=== PATIENT | male | born 1950 | race Caucasian/White ===

== ENCOUNTER 2017-08-27 09:29 | Observation (INO) | payer MEDICARE, OTHER ==
[2017-08-27] MEDS ORDERED: Nitroglycerin 0.4 MG Tab.SL SL ONE (09:38)
[2017-08-27] MEDS ORDERED: Sodium Chloride 0.9% 10 ML Syringe FLUSH PRN (09:38)
[2017-08-27 10:28] LABS: CHLORIDE,CL 102 mmol/L (98-107); SODIUM,NA 139 mmol/L (136-145)
[2017-08-27] MEDS ORDERED: Iopamidol 612 MG/ML 100 ML Bottle IVPUSH ONE (12:06)
[2017-08-27] MEDS ORDERED: Enoxaparin 100 MG/1 ML Syringe SUBCUT SCH (15:00)
--- NOTE | 2017-08-27 15:14 | EDM.PDOC ---
ED HPI GENERAL MEDICAL PROBLEM - General Chief Complaint: Chest Pain Stated Complaint: CHEST PAINS Time Seen by Provider: 08/27/17 09:29 Source of Information: Reports: Patient History Limitations: Reports: No Limitations - History of Present Illness INITIAL COMMENTS - FREE TEXT/NARRATIVE: Pt. presented to ER with acute onset of crushing substernal chest pain that developed while installing manolo at his residence. Pt. states that he checked his pulse and stated that it was 160. Pt. stated that he thought he " was having a heart attack". He was immediately diaphoretic at onset. Pt. states that he has had similar episodes in the past. He states that he has had a history of previous tachydysrhythmia in the past and has seen cardiology for this. She states that the discomfort doesn't radiate into his arms, jaw, neck, or back. Pt. states that he has been experiencing diarrhea intermittently for the past several days as well. He has a history of previous TIA and states that he thinks he has had an angiogram as well in the past. 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 Mid-Sternal Chest Pain Score (Numeric/FACES): 2 - Related Data Allergies Allergy/AdvReac Type Severity Reaction Status Date / Time hydrocodone Allergy Cannot Verified 08/27/17 10:07 Remember lisinopril AdvReac Tachycardia Verified 08/27/17 10:07 metformin AdvReac Nausea and Verified 08/27/17 10:07 Vomiting rofecoxib [From Vioxx] AdvReac Tachycardia Verified 08/27/17 10:07 valdecoxib [From Bextra] AdvReac Tachycardia Verified 08/27/17 10:07 Home Meds: Home Meds Tetrahydrozoline HCl [Visine] 1 drop EYEBOTH ASDIRECTED PRN 06/29/16 [History] Aspirin 325 mg PO DAILY 08/27/17 [History] Valsartan [Valsartan] 40 mg PO DAILY 08/27/17 [History] atorvaSTATin [Lipitor] 40 mg PO DAILY 08/27/17 [History] Past Medical History HEENT History: Reports: Hard of Hearing Cardiovascular History: Reports: High Cholesterol, Hypertension Neurological History: Reports: CVA, TIA Endocrine/Metabolic History: Reports: Obesity/BMI 30+ - Infectious Disease History Infectious Disease History: Reports: Chicken Pox - Past Surgical History GI Surgical History: Reports: Colonoscopy Musculoskeletal Surgical History: Reports: Arthroscopic Knee, Other (See Below) Social & Family History - Family History Family Medical History: Noncontributory - Tobacco Use Smoking Status *Q: Former Smoker Years of Tobacco use: 25 Used Tobacco, but Quit: No Month Tobacco Last Used: 1 Second Hand Smoke Exposure: Yes - Caffeine Use Caffeine Use: Reports: Coffee, Soda - Alcohol Use Days Per Week of Alcohol Use: 7 Number of Drinks Per Day: 1 Total Drinks Per Week: 7 - Recreational Drug Use Recreational Drug Use: No Drug Use in Last 12 Months: No ED ROS GENERAL - Review of Systems Review Of Systems: See Below Constitutional: Reports: No Symptoms HEENT: Reports: No Symptoms Respiratory: Reports: No Symptoms Cardiovascular: Reports: Chest Pain, Lightheadedness, Other (tachycardia) Endocrine: Reports: No Symptoms, Other (type II DM, not currently taking medication (unable to tolerate oral meds)) GI/Abdominal: Reports: No Symptoms : Reports: No Symptoms Musculoskeletal: Reports: No Symptoms Skin: Reports: No Symptoms Neurological: Reports: Other (TIA) Psychiatric: Reports: No Symptoms Hematologic/Lymphatic: Reports: No Symptoms Immunologic: Reports: No Symptoms ED EXAM, GENERAL - Physical Exam Exam: See Below Exam Limited By: No Limitations General Appearance: Alert, WD/WN, No Apparent Distress Eye Exam: Bilateral Eye: Normal Fundi, Normal Inspection, PERRL Ears: Normal External Exam, Normal Canal, Hearing Grossly Normal, Normal TMs Ear Exam: Bilateral Ear: Auricle Normal, Canal Normal, TM normal Nose: Normal Inspection, Normal Mucosa, No Blood Throat/Mouth: Normal Inspection, Normal Lips, Normal Teeth, Normal Gums, Normal Oropharynx, Normal Voice, No Airway Compromise Head: Atraumatic, Normocephalic Neck: Normal Inspection, Supple, Non-Tender, Full Range of Motion Respiratory/Chest: No Respiratory Distress, Lungs Clear, Normal Breath Sounds, No Accessory Muscle Use, Chest Non-Tender Cardiovascular: Normal Peripheral Pulses, Regular Rate, Rhythm, No Edema, No Gallop, No JVD, No Murmur, No Rub Peripheral Pulses: 3+: Radial (L), Radial (R) GI/Abdominal: Normal Bowel Sounds, Soft, Non-Tender, No Organomegaly, No Distention, No Abnormal Bruit, No Mass (Male) Exam: Deferred Rectal (Males) Exam: Deferred Back Exam: Normal Inspection, Full Range of Motion, NT Extremities: Normal Inspection, Normal Range of Motion, Non-Tender, Normal Capillary Refill, No Pedal Edema Neurological: Alert, Oriented, CN II-XII Intact, Normal Cognition, Normal Gait, Normal Reflexes, No Motor/Sensory Deficits Psychiatric: Normal Affect, Normal Mood Skin Exam: Warm, Dry, Intact, Normal Color, No Rash EKG INTERPRETATION Rhythm: NSR [place]: Normal P-Wave: Present QRS: Normal ST-T: Depressed QT: Normal Course - Vital Signs Last Recorded V/S: Last Vital Signs Temp 36.8 C 08/27/17 13:38 Pulse 95 08/27/17 11:31 Resp 18 08/27/17 13:38 BP 119/71 08/27/17 13:38 Pulse Ox 95 08/27/17 13:38 - Orders/Labs/Meds Orders: Active Orders 24 hr Category Date Time Status Chest 1V Frontal [CR] Stat Exams 08/27/17 09:37 Taken Sodium Chloride 0.9% [Saline Flush] Med 08/27/17 09:38 Active 10 ml FLUSH ASDIRECTED PRN Peripheral IV Insertion Adult [OM.PC] Routine Oth 08/27/17 09:38 Ordered Medication Orders Atorvastatin Calcium (Lipitor) 40 mg PO DAILY [facility] Enoxaparin Sodium (Lovenox) 100 mg SUBCUT Q12HR [facility] Insulin Detemir (Levemir) 20 unit SUBCUT DAILY [facility] Non-Formulary Medication (Aspirin [Aspirin]) 325 mg PO DAILY [facility] Non-Formulary Medication (Valsartan [Valsartan]) 40 mg PO DAILY [facility] Sodium Chloride (Saline Flush) 10 ml FLUSH ASDIRECTED PRN PRN Reason: Keep Vein Open Labs: Laboratory Tests 08/27/17 08/27/17 08/27/17 Range/Units 09:51 09:51 09:51 WBC 7.5 (4.0-10.0) x10^3/uL RBC 4.95 (4.5-6.0) x10^6/uL Hgb 15.0 (14.0-18.0) g/dL Hct 43.7 (40.0-52.0) % MCV 88.3 (78.0-93.0) fL MCH 30.3 (26.0-32.0) pg MCHC 34.3 (32.0-36.0) g/dL RDW Coeff of Rafa 13.0 (10.0-15.0) % Plt Count 241 (130-400) x10^3/uL Neut % (Auto) 60.3 (50.0-80.0) % Lymph % (Auto) 27.3 (25.0-50.0) % [place] % (Auto) 10.0 (2.0-11.0) % Eos % (Auto) 1.9 (0.0-4.0) % Baso % (Auto) 0.5 (0.2-1.2) % PT 11.0 (9.8-11.8) SEC INR 1.0 L (2.0-3.5) Sodium 139 (136-145) mmol/L Potassium 3.5 (3.5-5.1) mmol/L Chloride 102 (98-107) mmol/L Carbon Dioxide 21 (21-32) mmol/L BUN 22 H (7-18) mg/dL Creatinine 1.0 (0.70-1.30) mg/dL Est Cr Clr Drug Dosing TNP Estimated GFR (MDRD) > 60 Glucose 261 H (74-106) mg/dL Calcium 9.2 (8.5-10.1) mg/dL Corrected Calcium 9.60 (8.5-10.1) mg/dL Total Bilirubin 0.7 (0.2-1.0) mg/dL AST 20 (15-37) U/L ALT 34 (16-63) U/L Alkaline Phosphatase 126 H (46-116) U/L Creatine Kinase 152 (39-308) U/L Creatine Kinase Index 1.3 (0.0-4.0) % CK-MB (CK-2) 2.0 (0.0-3.6) ng/mL POC Troponin I (0.00-0.08) ng/mL C-Reactive Protein 0.9 (<=0.9) mg/dL NT-Pro-B Natriuret Pep 78 (<=125) pg/mL Total Protein 7.3 (6.4-8.2) g/dL Albumin 3.5 (3.4-5.0) g/dL Globulin 3.8 Albumin/Globulin Ratio 0.92 08/27/17 Range/Units 09:58 WBC (4.0-10.0) x10^3/uL RBC (4.5-6.0) x10^6/uL Hgb (14.0-18.0) g/dL Hct (40.0-52.0) % MCV (78.0-93.0) fL MCH (26.0-32.0) pg MCHC (32.0-36.0) g/dL RDW Coeff of Rafa (10.0-15.0) % Plt Count (130-400) x10^3/uL Neut % (Auto) (50.0-80.0) % Lymph % (Auto) (25.0-50.0) % [place] % (Auto) (2.0-11.0) % Eos % (Auto) (0.0-4.0) % Baso % (Auto) (0.2-1.2) % PT (9.8-11.8) SEC INR (2.0-3.5) Sodium (136-145) mmol/L Potassium (3.5-5.1) mmol/L Chloride (98-107) mmol/L Carbon Dioxide (21-32) mmol/L BUN (7-18) mg/dL Creatinine (0.70-1.30) mg/dL Est Cr Clr Drug Dosing Estimated GFR (MDRD) Glucose (74-106) mg/dL Calcium (8.5-10.1) mg/dL Corrected Calcium (8.5-10.1) mg/dL Total Bilirubin (0.2-1.0) mg/dL AST (15-37) U/L ALT (16-63) U/L Alkaline Phosphatase (46-116) U/L Creatine Kinase (39-308) U/L Creatine Kinase Index (0.0-4.0) % CK-MB (CK-2) (0.0-3.6) ng/mL POC Troponin I 0.00 (0.00-0.08) ng/mL C-Reactive Protein (<=0.9) mg/dL NT-Pro-B Natriuret Pep (<=125) pg/mL Total Protein (6.4-8.2) g/dL Albumin (3.4-5.0) g/dL Globulin Albumin/Globulin Ratio Meds: Medications Generic Name Dose Route Start Last Admin Trade Name Nedq PRN Reason Stop Dose Admin Atorvastatin Calcium 40 mg 08/27/17 08:00 Lipitor PO DAILY [facility] Enoxaparin Sodium 100 mg 08/27/17 20:00 Lovenox SUBCUT Q12HR [facility] Insulin Detemir 20 unit 08/27/17 14:45 Levemir SUBCUT DAILY [facility] Non-Formulary Medication 325 mg 08/28/17 08:00 Aspirin [Aspirin] PO DAILY [facility] Non-Formulary Medication 40 mg 08/28/17 08:00 Valsartan [Valsartan] PO DAILY [facility] Sodium Chloride 10 ml 08/27/17 09:38 Saline Flush FLUSH ASDIRECTED PRN Keep Vein Open Discontinued Medications Generic Name Dose Route Start Last Admin Trade Name Nedq PRN Reason Stop Dose Admin Iopamidol 100 ml 08/27/17 12:06 08/27/17 12:19 Isovue-300 (61%) IVPUSH 08/27/17 12:07 100 ml ONETIME ONE Administration Nitroglycerin 0.4 mg 08/27/17 09:38 08/27/17 09:55 Nitrostat SL 08/27/17 09:39 0.4 mg ONETIME ONE Administration - Radiology Interpretation Free Text/Narrative:: CXR neg. CT chest with contrast did not reveal AAA. CT Results Date: 08/27/17 CT Results Time: 15:19 Departure - Departure Time of Disposition: 13:00 Disposition: Refer to Observation Clinical Impression: Chest pain of uncertain etiology - My Orders Last 24 Hours: My Active Orders 08/27/17 09:37 Chest 1V Frontal [CR] Stat 08/27/17 09:38 Sodium Chloride 0.9% [Saline Flush] 10 ml FLUSH ASDIRECTED PRN Peripheral IV Insertion Adult [OM.PC] Routine - Assessment/Plan Last 24 Hours: My Active Orders 08/27/17 09:37 Chest 1V Frontal [CR] Stat 08/27/17 09:38 Sodium Chloride 0.9% [Saline Flush] 10 ml FLUSH ASDIRECTED PRN Peripheral IV Insertion Adult [OM.PC] Routine Assessment:: Chest pain, R/O VT Plan: Admit-Obs Dr. Keith consulted. Advised serial troponins. Code level 1. Start lovenox 80mg BID Start levemir 20u daily will transfer if troponin is trending upward
[2017-08-27] MEDS: atorvaSTATin 40 MG Tab PO SCH (15:23)
[2017-08-27] MEDS: Insulin Detemir 100 Units/ML 3 ML Pen SUBCUT SCH (15:53)
[2017-08-27] MEDS: Enoxaparin 100 MG/1 ML Syringe SUBCUT SCH (21:31)
[2017-08-28 06:49] VITALS: BP 112/60
[2017-08-28] MEDS: Enoxaparin 100 MG/1 ML Syringe SUBCUT SCH (07:27)
[2017-08-28] MEDS: atorvaSTATin 40 MG Tab PO SCH (07:28)
[2017-08-28] MEDS: Insulin Detemir 100 Units/ML 3 ML Pen SUBCUT SCH (07:28)
[2017-08-28] MEDS ORDERED: Losartan 25 MG Tab PO SCH (08:00)
[2017-08-28] MEDS ORDERED: Aspirin 325 MG Tab.EC PO SCH (08:00)
[2017-08-28 09:31] LABS: CHLORIDE,CL 103 mmol/L (98-107); SODIUM,NA 138 mmol/L (136-145)
--- NOTE | 2017-09-13 01:54 | PCM.DCSUM1 ---
Discharge Summary - Hospital Course Free Text/Narrative:: Pt. was admitted with chest and arm pain from ER. Serial EKG and cardiac enzymes were all within normal limits. Pt. presented with crushing chest pain with a heart rate in the 130-140 range (sinus tach) which quickly resolved to a sinus rhythm at 80-90. Pt. was started in levemir for glucose control; pt. states that his A1C in the 8-9 range consistently and he is unable to tolerate oral medication, so he hasn't been treating his diabetes. Dr. Keith was consulted who advised that the pt. be admitted and set up for 2 day cardiolyte as an outpatient, as his cardiac enzymes and EKG were WNL. - Discharge Data Discharge Date: 08/28/17 Discharge Disposition: Home, Self-Care 01 Condition: Good - Discharge Diagnosis/Problem(s) (1) Chest pain SNOMED Code(s): 52212962 ICD Code: R07.9 - CHEST PAIN, UNSPECIFIED Status: Acute Qualifiers: Ischemic chest pain type: stable angina pectoris - Patient Instructions Diet: Heart Healthy Diet Driving: Do Not Drive - Discharge Plan Prescriptions/Med Rec: Insulin Detemir [Levemir] 20 unit SUBCUT DAILY #5 pen Home Medications: Home Meds Tetrahydrozoline HCl [Visine] 1 drop EYEBOTH ASDIRECTED PRN 06/29/16 [History] Aspirin 325 mg PO DAILY 08/27/17 [History] Valsartan 40 mg PO DAILY 08/27/17 [History] atorvaSTATin [Lipitor] 40 mg PO DAILY 08/27/17 [History] Insulin Detemir [Levemir] 20 unit SUBCUT DAILY #5 pen 08/28/17 [Rx] Forms: ED Department Discharge Referrals: Sascha Willingham MD [Primary Care Provider] - - General Info Functional Status: Reports: Pain Controlled - Review of Systems General: Reports: No Symptoms HEENT: Reports: No Symptoms Pulmonary: Reports: No Symptoms Cardiovascular: Reports: Chest Pain (resolved) Gastrointestinal: Reports: No Symptoms Genitourinary: Reports: No Symptoms Musculoskeletal: Reports: No Symptoms Skin: Reports: No Symptoms Neurological: Reports: No Symptoms Psychiatric: Reports: No Symptoms - Patient Data Vitals - Most Recent: Last Vital Signs Temp 36.7 C 08/28/17 06:00 Pulse 69 08/28/17 06:00 Resp 18 08/28/17 06:00 BP 112/60 08/28/17 07:28 Pulse Ox 96 08/28/17 06:00 Weight - Most Recent: 104.326 kg Med Orders - Current: Current Medications Discontinued Medications Aspirin (Ecotrin) 325 mg PO DAILY [facility] Last Admin: 08/28/17 07:28 Dose: 325 mg Atorvastatin Calcium (Lipitor) 40 mg PO DAILY [facility] Last Admin: 08/28/17 07:28 Dose: 40 mg Enoxaparin Sodium (Lovenox) 100 mg SUBCUT Q12H [facility] Last Admin: 08/27/17 15:57 Dose: 100 mg Enoxaparin Sodium (Lovenox) 100 mg SUBCUT Q12HR@0800,2000 [facility] Last Admin: 08/28/17 07:27 Dose: 100 mg Insulin Detemir (Levemir) 20 unit SUBCUT DAILY [facility] Last Admin: 08/28/17 07:28 Dose: 20 units Iopamidol (Isovue-300 (61%)) 100 ml IVPUSH ONETIME ONE Stop: 08/27/17 12:07 Last Admin: 08/27/17 12:19 Dose: 100 ml Losartan Potassium (Cozaar) 25 mg PO DAILY [facility] Last Admin: 08/28/17 07:28 Dose: 25 mg Nitroglycerin (Nitrostat) 0.4 mg SL ONETIME ONE Stop: 08/27/17 09:39 Last Admin: 08/27/17 09:55 Dose: 0.4 mg Sodium Chloride (Saline Flush) 10 ml FLUSH ASDIRECTED PRN PRN Reason: Keep Vein Open Last Admin: 08/27/17 21:33 Dose: 10 ml - Exam General: Reports: Alert, Oriented HEENT: Reports: Pupils Equal, Pupils Reactive, EOMI, Mucous Membr. Moist/[place] Neck: Reports: Supple Lungs: Reports: Clear to Auscultation, Normal Respiratory Effort Cardiovascular: Reports: Regular Rate, Regular Rhythm GI/Abdominal Exam: Normal Bowel Sounds, Soft, Non-Tender, No Organomegaly, No Distention, No Abnormal Bruit, No Mass, Pelvis Stable (Male) Exam: Deferred Rectal (Males) Exam: Deferred Back Exam: Reports: Normal Inspection, Full Range of Motion Extremities: Normal Inspection, Normal Range of Motion, Non-Tender, No Pedal Edema, Normal Capillary Refill Skin: Reports: Warm, Dry, Intact Wound/Incisions: Reports: Healing Well Neurological: Reports: No New Focal Deficit Psy/Mental Status: Reports: Alert, Normal Affect, Normal Mood EKG INTERPRETATION Rhythm: NSR *Q Meaningful Use (DIS) - VTE *Q VTE Criteria *Q: - Stroke *Q Stroke Criteria *Q: - AMI *Q AMI Criteria *Q:
== END 2017-08-28 10:30 | disposition home or self-care (01) ==
LOC: VM.ED 09:29 → VM.MS 11:53
PROVIDERS: ADMIT Physician Assistant; ATTEND Physician Assistant
DX: R07.2 Precordial pain (principal); E78.00 Pure hypercholesterolemia, unspecified; I10 Essential (primary) hypertension; E11.9 Type 2 diabetes mellitus without complications; E66.9 Obesity, unspecified; Z68.34 Body mass index [BMI] 34.0-34.9, adult; Z86.73 Personal history of transient ischemic attack (TIA), and cerebral infarction without residual deficits; Z87.891 Personal history of nicotine dependence; Z88.5 Allergy status to narcotic agent; Z88.8 Allergy status to other drugs, medicaments and biological substances; Z88.6 Allergy status to analgesic agent; Z79.899 Other long term (current) drug therapy; Z79.82 Long term (current) use of aspirin; Z98.890 Other specified postprocedural states
CPT/HCPCS: 36415; 71045; 71275; 80053; 82550; 82553; 82962; 83880; 84484; 85025; 85027; 85610; 86140; 93005; 96372; 99217; 99220; 99285; A9270-GY; G0378; J1650; J1815-GY; J7050; Q9967

== ENCOUNTER 2018-09-02 08:55 | Emergency (ER) | payer MEDICARE, OTHER ==
[2018-09-02] MEDS ORDERED: Sodium Chloride 0.9% 10 ML Syringe FLUSH PRN (09:02)
[2018-09-02] MEDS ORDERED: Sodium Chloride 0.9% 1,000 ML IV ONE (09:05)
[2018-09-02] MEDS ORDERED: Aspirin 81 MG Tab.Chew PO ONE (09:14)
--- NOTE | 2018-09-02 09:44 | CR ---
[id number] RAD/RAD Chest PA or AP 1V EXAM: FRONTAL CHEST INDICATION: DYSPNEA. COMPARISON: August 27, 2017. DISCUSSION: The heart is mildly enlarged with development of mild central vascular congestion. No focal infiltrates. IMPRESSION: 1. Mild central vascular congestion. Taurus Nava MD 09/02/18 0943 Thank you for allowing us to participate in the care of your patient.
--- NOTE | 2018-09-02 09:48 | EDM.PDOC ---
ED HPI GENERAL MEDICAL PROBLEM - General Chief Complaint: Chest Pain Time Seen by Provider: 09/02/18 09:00 Source of Information: Reports: Patient History Limitations: Reports: No Limitations - History of Present Illness INITIAL COMMENTS - FREE TEXT/NARRATIVE: Pt. presents to ER with complaints of palpitations that started last evening, lightheadedness, and chest pain. He initially went to the clinic and was brought to ER after becoming near-syncopal and lightheaded in clinic. He was diaphoretic. He has had palpitations in the past but states that he has never been formally diagnosed with a-fib or other dysrhythmia in the past. He was admitted to our facility last Aug. with palpitations and chest pain. He was set up for a cardiolyte stress test which was positive. Pt. declined any further workup. Pt. states that he occasionally has episodes of transient chest pain or palpitations which resolve spontaneously. He has attributed this to elevated blood sugars, medications, etc. He states that he was diagnosed with some type of valvular heart disease-at this time we are attempting to find a note in his voluminous medical records discussing this. It does appear his has some mitral regurgitation on an echo in 2017. EF was 60%. Denies any recent illness. No cough of chest congestion. No nausea, vomiting, or diarrhea. He does not regularly check his blood sugar but states it was 209mg /dl this AM and 260mg/dl yesterday. Onset Date: 09/01/18 Location: Reports: Chest, Generalized Quality: Reports: Ache Severity: Moderate Associated Symptoms: Reports: Chest Pain, Diaphoresis, Shortness of Breath, Other (palpitations). Denies: Cough Mid-Sternal Chest Pain Score (Numeric/FACES): 2 - Related Data Allergies Allergy/AdvReac Type Severity Reaction Status Date / Time hydrocodone Allergy Cannot Verified 09/02/18 09:21 Remember lisinopril AdvReac Tachycardia Verified 09/02/18 09:21 metformin AdvReac Nausea and Verified 09/02/18 09:21 Vomiting rofecoxib [From Vioxx] AdvReac Tachycardia Verified 09/02/18 09:21 valdecoxib [From Bextra] AdvReac Tachycardia Verified 09/02/18 09:21 Home Meds: Home Meds Tetrahydrozoline HCl [Visine] 1 drop EYEBOTH ASDIRECTED PRN 12/12/16 [History] Aspirin 325 mg PO DAILY 08/27/17 [History] atorvaSTATin [Lipitor] 40 mg PO DAILY 08/27/17 [History] Albuterol [Ventolin HFA] 1 puff INH Q4H PRN 09/02/18 [History] Insulin Glarg,Human.Rec.Analog [Lantus Solostar] 20 unit SQ BEDTIME 09/02/18 [ History] Losartan [Cozaar] 25 mg PO DAILY 09/02/18 [History] Past Medical History HEENT History: Reports: Hard of Hearing Cardiovascular History: Reports: High Cholesterol, Hypertension Neurological History: Reports: CVA, TIA Endocrine/Metabolic History: Reports: Obesity/BMI 30+ - Infectious Disease History Infectious Disease History: Reports: Chicken Pox - Past Surgical History GI Surgical History: Reports: Colonoscopy Musculoskeletal Surgical History: Reports: Arthroscopic Knee, Other (See Below) Social & Family History - Family History Family Medical History: Noncontributory - Caffeine Use Caffeine Use: Reports: Coffee, Soda ED ROS GENERAL - Review of Systems Review Of Systems: See Below Constitutional: Reports: No Symptoms HEENT: Reports: No Symptoms Respiratory: Reports: Shortness of Breath. Denies: Cough, Hemoptysis Cardiovascular: Reports: Chest Pain, Dyspnea on Exertion, Lightheadedness, Palpitations. Denies: Edema Endocrine: Reports: Fatigue GI/Abdominal: Reports: No Symptoms : Reports: No Symptoms Musculoskeletal: Reports: No Symptoms. Denies: Joint Pain, Muscle Pain Skin: Reports: Pallor, Diaphoresis Neurological: Reports: No Symptoms Psychiatric: Reports: No Symptoms Hematologic/Lymphatic: Reports: No Symptoms Immunologic: Reports: No Symptoms ED EXAM, GENERAL - Physical Exam Exam: See Below Exam Limited By: No Limitations General Appearance: Alert, WD/WN, Anxious, Other (very lightheaded, somewhat slow to respond, appears pre-syncopal) Nose: Normal Inspection, Normal Mucosa, No Blood Throat/Mouth: Normal Inspection, Normal Lips, Normal Teeth, Normal Gums, Normal Oropharynx, Normal Voice, No Airway Compromise Head: Atraumatic, Normocephalic Neck: Normal Inspection, Supple, Non-Tender, Full Range of Motion Respiratory/Chest: No Respiratory Distress, Lungs Clear, Normal Breath Sounds, No Accessory Muscle Use Cardiovascular: Normal Peripheral Pulses, No Edema, No JVD, Tachycardia, Irregularly Irregular Peripheral Pulses: 3+: Radial (R) GI/Abdominal: Normal Bowel Sounds, Soft, Non-Tender. No: Hepatomegaly, Splenomegaly (Male) Exam: Deferred Rectal (Males) Exam: Deferred Back Exam: Normal Inspection, Full Range of Motion Extremities: Normal Inspection, Normal Range of Motion, Non-Tender, No Pedal Edema, Pallor Neurological: Alert, Oriented, CN II-XII Intact, Normal Cognition, No Motor/ Sensory Deficits Psychiatric: Normal Affect, Normal Mood Skin Exam: Warm, Dry, No Rash, Diaphoretic, Pallor EKG INTERPRETATION EKG Date: 09/02/18 Rhythm: A-Fib [place]: Normal P-Wave: Present QRS: Normal ST-T: Depressed (anteriolateral leads) QT: Normal Course - Vital Signs Last Recorded V/S: Last Vital Signs Temp 36.1 C 09/02/18 09:00 Pulse 95 09/02/18 09:46 Resp 16 09/02/18 09:46 BP 102/62 09/02/18 09:46 Pulse Ox 97 09/02/18 09:46 - Orders/Labs/Meds Orders: Active Orders 24 hr Category Date Time Status EKG Documentation Completion [RC] STAT Care 09/02/18 09:03 Active CULTURE BLOOD [BC] Stat Lab 09/02/18 09:04 Ordered CULTURE BLOOD [BC] Stat Lab 09/02/18 09:04 Ordered LACTIC ACID [CHEM] Stat Lab 09/02/18 09:03 Ordered Sodium Chloride 0.9% [Saline Flush] Med 09/02/18 09:02 Active 10 ml FLUSH ASDIRECTED PRN Blood Culture x2 Reflex Set [OM.PC] Stat Oth 09/02/18 09:04 Ordered Peripheral IV Insertion Adult [OM.PC] Routine Oth 09/02/18 09:03 Ordered Medication Orders Sodium Chloride (Saline Flush) 10 ml FLUSH ASDIRECTED PRN PRN Reason: Keep Vein Open Labs: Laboratory Tests 09/02/18 09/02/18 09/02/18 Range/Units 09:10 09:10 09:10 WBC 8.8 (4.0-10.0) x10^3/uL RBC 5.09 (4.5-6.0) x10^6/uL Hgb 15.3 (14.0-18.0) g/dL Hct 44.7 (40.0-52.0) % MCV 87.8 (78.0-93.0) fL MCH 30.1 (26.0-32.0) pg MCHC 34.2 (32.0-36.0) g/dL RDW Coeff of Rafa 12.9 (10.0-15.0) % Plt Count 249 (130-400) x10^3/uL Neut % (Auto) 60.4 (50.0-80.0) % Lymph % (Auto) 27.2 (25.0-50.0) % Kimble % (Auto) 10.1 (2.0-11.0) % Eos % (Auto) 2.0 (0.0-4.0) % Baso % (Auto) 0.3 (0.2-1.2) % PT 11.3 (9.6-11.4) SEC INR 1.1 L (2.0-3.5) Sodium 139 (136-145) mmol/L Potassium 4.0 (3.5-5.1) mmol/L Chloride 103 (98-107) mmol/L Carbon Dioxide 23 (21-32) mmol/L Anion Gap 17.0 (10-20) mmol/L BUN 19 H (7-18) mg/dL Creatinine 0.7 (0.70-1.30) mg/dL Est Cr Clr Drug Dosing 97.05 mL/min Estimated GFR (MDRD) > 60 Glucose 163 H (74-106) mg/dL Calcium 9.1 (8.5-10.1) mg/dL Corrected Calcium 9.74 (8.5-10.1) mg/dL Phosphorus 3.0 (2.6-4.7) mg/dL Magnesium 1.7 L (1.8-2.4) mg/dL Total Bilirubin 0.5 (0.2-1.0) mg/dL AST 19 (15-37) U/L ALT 31 (16-63) U/L Alkaline Phosphatase 103 (46-116) U/L Troponin I < 0.017 (<=0.056) ng/mL C-Reactive Protein 0.8 (<=0.9) mg/dL NT-Pro-B Natriuret Pep 585 H (<=125) pg/mL Total Protein 7.5 (6.4-8.2) g/dL Albumin 3.2 L (3.4-5.0) g/dL Globulin 4.3 Albumin/Globulin Ratio 0.74 TSH, Ultra Sensitive 1.820 (0.358-3.74) uIU/mL Meds: Medications Generic Name Dose Route Start Last Admin Trade Name Freq PRN Reason Stop Dose Admin Sodium Chloride 10 ml 09/02/18 09:02 Saline Flush FLUSH ASDIRECTED PRN Keep Vein Open Discontinued Medications Generic Name Dose Route Start Last Admin Trade Name Freq PRN Reason Stop Dose Admin Aspirin 324 mg 09/02/18 09:14 09/02/18 09:45 Aspirin PO 09/02/18 09:15 Not Given ONETIME ONE Sodium Chloride 1,000 mls @ 1,000 mls/hr 09/02/18 09:05 09/02/18 09:15 Normal Saline IV 09/02/18 10:04 1,000 mls/hr .BOLUS ONE Administration - Radiology Interpretation Free Text/Narrative:: mild failure pattern and cardiomegaly noted. - Re-Assessments/Exams Free Text/Narrative Re-Assessment/Exam: Heart rate was in the 130 range and BP was 100/40. His rate decreased into the high 90s, low 100 range so no medication was given as his rate was fairly well controlled. Departure - Departure Time of Disposition: 10:29 Disposition: DC/Tfer to Acute Hospital 02 Clinical Impression: Atrial fibrillation with RVR, CHF (congestive heart failure) Chest pain Qualifiers: Ischemic chest pain type: stable angina pectoris - Discharge Information Referrals: PCP,Unknown [Primary Care Provider] - Forms: ED Department Discharge - My Orders Last 24 Hours: My Active Orders 09/02/18 09:02 Sodium Chloride 0.9% [Saline Flush] 10 ml FLUSH ASDIRECTED PRN 09/02/18 09:03 EKG Documentation Completion [RC] STAT LACTIC ACID [CHEM] Stat Peripheral IV Insertion Adult [OM.PC] Routine 09/02/18 09:04 CULTURE BLOOD [BC] Stat CULTURE BLOOD [BC] Stat Blood Culture x2 Reflex Set [OM.PC] Stat - Assessment/Plan Last 24 Hours: My Active Orders 09/02/18 09:02 Sodium Chloride 0.9% [Saline Flush] 10 ml FLUSH ASDIRECTED PRN 09/02/18 09:03 EKG Documentation Completion [RC] STAT LACTIC ACID [CHEM] Stat Peripheral IV Insertion Adult [OM.PC] Routine 09/02/18 09:04 CULTURE BLOOD [BC] Stat CULTURE BLOOD [BC] Stat Blood Culture x2 Reflex Set [OM.PC] Stat Assessment:: 1. a fib with RVR, near syncope, anteriolateral ST depression. 2. Lactic acidosis likely secondary to #1. 3. Mild CHF. Plan: Pt. will be transferred to [facility]. Awaiting room assignment. He will be transported via [facility] ground ambulance. Will start him on lovenox. He has had aspirin. Dr. Whiting is accepting. He is a code 1.
[2018-09-02 10:03] LABS: CHLORIDE,CL 103 mmol/L (98-107); SODIUM,NA 139 mmol/L (136-145)
[2018-09-02] MEDS ORDERED: Enoxaparin 120 MG/0.8 ML Syringe SUBCUT ONE (10:31)
[2018-09-02] MEDS ORDERED: Diltiazem 50 MG/10 ML SDV IVPUSH ONE (10:42)
[2018-09-02 12:24] VITALS: BP 115/64
== END 2018-09-02 11:25 | disposition short-term general hospital (02) ==
LOC: VM.ED 08:55
DX: I48.91 Unspecified atrial fibrillation (principal); I11.0 Hypertensive heart disease with heart failure; I50.9 Heart failure, unspecified; E87.2 Acidosis; E78.00 Pure hypercholesterolemia, unspecified; Z86.73 Personal history of transient ischemic attack (TIA), and cerebral infarction without residual deficits; Z79.82 Long term (current) use of aspirin; Z79.899 Other long term (current) drug therapy; Z88.6 Allergy status to analgesic agent; Z88.8 Allergy status to other drugs, medicaments and biological substances
CPT/HCPCS: 36415; 71045; 80053; 83605; 83735; 83880; 84100; 84443; 84484; 85025; 85610; 86140; 87040; 93005; 96361; 96372; 96374; 99285; J1650; J3490; J7030

== ENCOUNTER 2019-12-01 21:48 | Emergency (ER) | payer MEDICARE, OTHER ==
[2019-12-01] MEDS ORDERED: Proparacaine 0.5% Ophth Soln 15 ML Bottle EYERT PRN (22:08)
[2019-12-01] MEDS ORDERED: Fluorescein 1 MG Ophth Strip EYERT ONE (22:08)
--- NOTE | 2019-12-01 22:18 | EDM.PDOC ---
ED HPI GENERAL MEDICAL PROBLEM - General Chief Complaint: Eye Problems Stated Complaint: SOMETHING IN EYE Time Seen by Provider: 12/01/19 22:00 Source of Information: Reports: Patient History Limitations: Reports: No Limitations - History of Present Illness INITIAL COMMENTS - FREE TEXT/NARRATIVE: Patient comes into the emergency department with complaint of a right eye irritation. Patient states he was mowing his lawn this evening and started noticing irritation in his right eye he did not think much of it however while watching TV tonight he he saw a speck of dust/fly into his right eye causing irritation. He did have his family members look in his eye and they did notice that he had particle his right eye. States it is blurry in the right eye but is able to see. He also states it is irritating him for him. Drainage to that eye previous. And states that he has been relatively healthy and has no other concerns or complaints. Onset: Sudden Quality: Reports: Other Severity: Moderate Improves with: Reports: None, Other (closing his eye ) Worsens with: Reports: Movement Associated Symptoms: Reports: No Other Symptoms - Related Data Allergies Allergy/AdvReac Type Severity Reaction Status Date / Time hydrocodone Allergy Cannot Verified 12/01/19 22:09 Remember lisinopril AdvReac Tachycardia Verified 12/01/19 22:09 metformin AdvReac Nausea and Verified 12/01/19 22:09 Vomiting rofecoxib [From Vioxx] AdvReac Tachycardia Verified 12/01/19 22:09 valdecoxib [From Bextra] AdvReac Tachycardia Verified 12/01/19 22:09 Home Meds: Home Meds Tetrahydrozoline HCl [Visine] 1 drop EYEBOTH ASDIRECTED PRN 06/29/16 [History] Aspirin 325 mg PO DAILY 08/27/17 [History] atorvaSTATin [Lipitor] 40 mg PO DAILY 08/27/17 [History] Albuterol [Ventolin HFA] 1 puff INH Q4H PRN 09/02/18 [History] Insulin Glarg,Human.Rec.Analog [Lantus Solostar] 20 unit SQ BEDTIME 09/02/18 [ History] Losartan [Cozaar] 25 mg PO DAILY 09/02/18 [History] Past Medical History HEENT History: Reports: Hard of Hearing Cardiovascular History: Reports: High Cholesterol, Hypertension Other Cardiovascular History: Abnormal stress test Gastrointestinal History: Reports: Colon Polyp, GERD Genitourinary History: Reports: BPH Musculoskeletal History: Reports: Osteoarthritis Neurological History: Reports: CVA, TIA Other Neuro History: Thoracic or lumbosacral neuritis or radiculitis Psychiatric History: Reports: Addiction Endocrine/Metabolic History: Reports: Obesity/BMI 30+ - Infectious Disease History Infectious Disease History: Reports: Chicken Pox - Past Surgical History GI Surgical History: Reports: Colonoscopy Musculoskeletal Surgical History: Reports: Arthroscopic Knee, Other (See Below) Social & Family History - Family History Family Medical History: Noncontributory - Caffeine Use Caffeine Use: Reports: Coffee, Soda ED ROS GENERAL - Review of Systems Review Of Systems: See Below Constitutional: Reports: No Symptoms HEENT: Reports: Eye Discharge, Eye Pain Respiratory: Reports: No Symptoms Cardiovascular: Reports: No Symptoms Endocrine: Reports: No Symptoms GI/Abdominal: Reports: No Symptoms : Reports: No Symptoms Musculoskeletal: Reports: No Symptoms Skin: Reports: No Symptoms Neurological: Reports: No Symptoms Psychiatric: Reports: No Symptoms Hematologic/Lymphatic: Reports: No Symptoms Immunologic: Reports: No Symptoms ED EXAM GENERAL W FULL EYE - Physical Exam Exam: See Below Exam Limited By: No Limitations General Appearance: Alert, WD/WN, No Apparent Distress Eye Exam: Bilateral Eye: EOMI, PERRL Visual Acuity (R) 20/: 40 Visual Acuity (L) 20/: 40 With Correction: No Eyelids: Bilateral: Normal Appearance Conjunctiva & Sclera: Bilateral: Normal Appearance Cornea Exam: Right: Corneal Abrasion, Left: Normal Appearance Extraocular Movements: Bilateral: Intact Pupils: Normal Accommodation Pupillary Size: Bilateral: 3 mm Pupillary Reaction: Bilateral: Brisk Anterior Chamber: Bilateral: Normal Appearance Posterior Chamber: Bilateral: Normal Funduscopic Ears: Normal External Exam, Normal Canal, Hearing Grossly Normal, Normal TMs Nose: Normal Inspection, Normal Mucosa, No Blood Throat/Mouth: Normal Inspection, Normal Lips, Normal Voice Head: Atraumatic, Normocephalic Neck: Normal Inspection, Supple, Non-Tender Respiratory/Chest: No Respiratory Distress, Lungs Clear Cardiovascular: Normal Peripheral Pulses, Regular Rate, Rhythm GI/Abdominal: Normal Bowel Sounds Course - Orders/Labs/Meds Orders: Active Orders 24 hr Category Date Time Status Fluorescein [Ful-Maria Antonia] Med 12/01/19 22:08 Once 1 mg EYERT ONETIME ONE Proparacaine [Proparacaine 0.5% Ophth Soln] Med 12/01/19 22:08 Ordered 1 ml EYERT ASDIRECTED PRN Departure - Departure Time of Disposition: 22:25 Disposition: Home, Self-Care 01 Condition: Good Clinical Impression: Corneal abrasion Qualifiers: Encounter type: initial encounter Laterality: right Qualified Code(s): S05.01XA - Injury of conjunctiva and corneal abrasion without foreign body, right eye, initial encounter - Discharge Information *PRESCRIPTION DRUG MONITORING PROGRAM REVIEWED*: Not Applicable *COPY OF PRESCRIPTION DRUG MONITORING REPORT IN PATIENT MOE: Not Applicable Instructions: Eye Foreign Body, [id number], Corneal Abrasion, [id number], Polymyxin B; Trimethoprim eye drops, solution Referrals: Sascha Willingham MD [Primary Care Provider] - Forms: ED Department Discharge Additional Instructions: 1. rest 2. Use 1 gtt eyedrop to right eye TID for 7 days 3. Continue all at home medications 4. Activity and diet as tolerated 5. Can take over the counter Tylenol or ibuprofen for any pain or discomfort 6. Follow up with PCP or eye doctor if symptoms continue, return, or progress 7. Call with any questions or concerns - My Orders Last 24 Hours: My Active Orders 12/01/19 22:08 Fluorescein [Ful-Maria Antonia] 1 mg EYERT ONETIME ONE Proparacaine [Proparacaine 0.5% Ophth Soln] 1 ml EYERT ASDIRECTED PRN - Assessment/Plan Last 24 Hours: My Active Orders 12/01/19 22:08 Fluorescein [Ful-Maria Antonia] 1 mg EYERT ONETIME ONE Proparacaine [Proparacaine 0.5% Ophth Soln] 1 ml EYERT ASDIRECTED PRN Assessment:: 1. Corneal Abrasion 2. Right eye injury Plan: 1. eye wash completed 2. Eye drops given to help with the discomfort 3. Chuy-maria antonia with eye evaluation noted 4. polytrim drops provided and sent with the patient to take TID x 7 days 5. Patient and nursing staff was updated regarding the plan of care 6. Education provided the patient regarding activity, diet, rest, over-the- counter medication modalities, and follow-up care was provided 7. Patient and family are agreeable to the above plan of care 8. All questions and concerns were addressed with the patient and family prior to discharge
[2019-12-01] MEDS ORDERED: Polymyxin B/Trimethoprim 10 ML Bottle EYERT ONE (22:20)
[2019-12-01 23:46] VITALS: BP 173/82; PULSE 61
== END 2019-12-01 22:32 | disposition home or self-care (01) ==
LOC: VM.ED 21:48
DX: S05.01XA Injury of conjunctiva and corneal abrasion without foreign body, right eye, initial encounter (principal); E78.00 Pure hypercholesterolemia, unspecified; I10 Essential (primary) hypertension; K21.9 Gastro-esophageal reflux disease without esophagitis; Z86.73 Personal history of transient ischemic attack (TIA), and cerebral infarction without residual deficits; E66.9 Obesity, unspecified; Z68.41 Body mass index [BMI] 40.0-44.9, adult; Z88.5 Allergy status to narcotic agent; Z88.8 Allergy status to other drugs, medicaments and biological substances; Z79.899 Other long term (current) drug therapy; Z79.82 Long term (current) use of aspirin; Z79.4 Long term (current) use of insulin; X58.XXXA Exposure to other specified factors, initial encounter
CPT/HCPCS: 99283; A9270